=== PATIENT | male | born 1945 | race Caucasian/White ===

== ENCOUNTER → 2016-09-19 | Outpatient (CLI) | payer OTHER ==
--- NOTE | ~2016-09-19 | MR133 ---
[facility] A Service of [facility] RADIOLOGY TEXT RESULTS PATIENT: TRISHA GREEN LOCATION: CEEG : 43 UNIT #: [id number] AGE: [address]: KAREN DONALD SEX: M ORDER DR: [id number] [facility] [address] [place], [place] [address] [id number] O MR#: [id number] Acc #: [id number] NAME: TRISHA GREEN. : 1945 SEX: M STUDY DATE/TIME: 09/19/2016 13:12 UNIT: CEEG ROOM: STUDY DESCRIPTION: MR MRA Neck WWo Contrast Attending Physician: Karen Donald M.D. Referring Physician: Karen Donald M.D. Ordering Physician: Staff Doctor Not On Primary Care Physician: Antoinette Meyer [facility] REPORT This report is preliminary unless electronic signature is present. EXAM Neck MRA, with and without contrast, 09/19/2016. PROCEDURE Axial time of flight neck MRA and coronally acquired gadolinium bolus neck MRA with 3-dimensional reformats. COMPARISON Carotid Doppler, 11/18/2012. HISTORY During in 2016, patient experienced 2 episodes of left arm and left face numbness and weakness with confusion. Symptoms have persisted for several weeks until mid-August, and patient has had recurrent symptoms with arising from seated position. Patient also has had prior right carotid endarterectomy. FINDINGS Both common, internal and external carotid and vertebral arteries are normally patent. There is a normal arch branching pattern. Cannot exclude some element of stenosis at the left common carotid origin, but that is not definite. Left vertebral originates very low on the left subclavian artery. The vertebral arteries are, otherwise, patent throughout the neck with slight right vertebral dominance. There has been right carotid endarterectomy and the right internal carotid is widely patent without evidence of recurrent stenosis, certainly 0% or less by NASCET criteria. The left carotid bifurcation is normal with 0% left internal carotid stenosis by NASCET criteria. IMPRESSION [facility] A Service of [facility] RADIOLOGY TEXT RESULTS PATIENT: TRISHA GREEN LOCATION: CEEG : 43 UNIT #: [id number] AGE: [address]: KAREN DONALD SEX: M ORDER DR: 1. 0% stenosis in both internal carotids by NASCET criteria. 2. Patent vertebral arteries bilaterally. Can't exclude some stenosis at the left common carotid and subclavian origins from the arch but that is not at all definite. Dictated by... Matthieu Og M.D. THIS IS AN ELECTRONICALLY VERIFIED REPORT Matthieu Og M.D. at 09/26/2016 5:36 PM ULICES/shae TD: 09/24/2016 00:02 JOB #: [id number] [facility] REPORT Page 1 of 1 COPY
[2016-09-19 11:00] LABS: CHOLESTEROL 201 mg/dL (0-200); HDL CHOLESTEROL 35 mg/dL (29-75)
[2016-09-19 11:02] LABS: TRIGLYCERIDES 432 mg/dL (10-160)
[2016-09-19 11:06] LABS: THYROID STIMULATING HORMONE 1.73 uIU/ml (0.34-5.60)
[2016-09-19 11:14] LABS: FREE THYROXIN (T4) 0.6 ng/dL (0.58-1.64)
[2016-09-19 11:19] LABS: FOLATE (FOLIC ACID) 10.2 ng/mL (>5.8)
[2016-09-19 13:01] LABS: POC - CREATININE 1.46 mg/dL (0.64-1.27)
== END | disposition home or self-care (01) ==
LOC: CEEG 09:57
PROVIDERS: Internal Medicine Sleep Medicine
DX: R41.3 Other amnesia (principal)
CPT/HCPCS: 36415; 70549; 80061; 82565; 82607; 82746; 83036; 84439; 84443; 95816; A9577